=== PATIENT | female | born 1990 | race Hispanic/Latino ===

== ENCOUNTER 2020-09-11 08:24 | Emergency (ER) | payer SELFPAY ==
[~2020-09-11] VITALS: Ht 152.4 cm; Wt 74.8 kg
[2020-09-11] MEDS ORDERED: IBUPROFEN 600 MG TAB PO STA (08:31)
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
--- NOTE | 2020-09-11 08:56 | NUR ---
RIGHT GREAT TOE WRAPPED WITH XEROFORM, KERLEX AND COBAN. PATIENT PLACED ON POST OP SHOE
--- NOTE | 2020-09-11 09:05 | Diagnostic Imaging Report ---
Foot complete CPT code: 61269 Indication: Great toe injury ^Y ^toe pain ^[id number] ^0850 Technique: Portable A.P., oblique and lateral views of the right foot obtained. Comparison: None Findings: Calcaneus is intact and normal in morphology. The midfoot is intact. No evidence of displaced fracture or dislocation involving any of the digits. There are 2 radiopaque foreign bodies underneath the nail of the great toe. IMPRESSION: 2 radiopaque foreign bodies under the nail of the great toe. No evidence of displaced fracture. If there is persistent pain or clinical concern, suggest repeat imaging in 5-7 days to exclude occult fracture. Signed by: Dr. Anna Mcgee MD on 09/11/2020 9:02 AM
[2020-09-11] MEDS ORDERED: ULTRAM50 MG PO (09:12)
--- OUTSIDE RECORDS SUMMARY | 2020-09-11 09:17 | XMS REPORT | Continuity of Care Document ---
Author Author [facility] Organization [facility] Address [address] [place] [id number] Phone Unavailable Care Team Providers Care Ethnology Professor Name Role Phone Hardeep HALL Attjohn Unavailable Problems This patient has no known problems. Allergies, Adverse Reactions, Alerts This patient has no known allergies or adverse reactions. Medications This patient has no known medications. Procedures This patient has no known procedures. Results Test Description Test Time Test Comments Results Result Comments Source FOOT RIGHT COMPLETE 2020-09-11 08:57:00 [facility] 1990 Sex: F [facility] [address], [place] [address] Patient Name: ABAD LI MR #: [id number] : 1990 Age/Sex: 30/F Req #: [id number] [facility] Physician: Ordered by: DEX HALL DO Report #: [id number] Location: ER Room/Bed: Procedure: [id number] DX/FOOT RIGHT COMPLETE Exam Date: 09/11/20 Exam Time: 849 REPORT STATUS: Signed Foot complete CPT code: 80270 Indication: Great toe injury Y toe pain [id number] Technique: Portable A.P., oblique and lateral views of the right foot obtained. Comparison: None Findings: Calcaneus is intact and normal in morphology. The midfoot is intact. No evidence of displaced fracture or dislocation involving any of the digits. There are 2 radiopaque foreign bodies underneath the nail of the great toe. IMPRESSION: 2 radiopaque foreign bodies under the nail of the great toe. No evidence of displaced fracture. If there is persistent pain or clinical concern, suggest repeat imaging in 5-7 days to exclude occult fracture. Signed by: Dr. Gideon Mcgee MD on 09/11/2020 9:02 AM Dictated By: GIDEON MCGEE MD 1 Transcribed By: TILA on 09/11/20901 COPY TO: DEX HALL DO
== END 2020-09-11 09:59 | disposition home or self-care (01) ==
LOC: ER 09:14
DX: M79.674 Pain in right toe(s) (principal); W22.8XXA Striking against or struck by other objects, initial encounter; Y92.008 Other place in unspecified non-institutional (private) residence as the place of occurrence of the external cause; F17.210 Nicotine dependence, cigarettes, uncomplicated
CPT/HCPCS: 99283

== ENCOUNTER 2024-11-22 11:41 | Emergency (ER) | payer SELFPAY ==
[~2024-11-22] VITALS: Ht 152.4 cm; Wt 74.8 kg
[~2024-11-22 11:41] MED LIST: ULTRAM50 MG PO
[2024-11-22 12:16] VITALS: PULSE 85; RESP 18; TEMP 98.4; O2SAT 100
[2024-11-22] MEDS: ACETAMINOPHEN 325 MG TAB PO ONE (12:52)
== END 2024-11-22 14:00 | disposition home or self-care (01) ==
LOC: ER 12:18
DX: S06.0X0A Concussion without loss of consciousness, initial encounter (principal); S10.83XA Contusion of other specified part of neck, initial encounter; R51.9 Headache, unspecified; R11.2 Nausea with vomiting, unspecified; Y04.8XXA Assault by other bodily force, initial encounter; Y92.89 Other specified places as the place of occurrence of the external cause
CPT/HCPCS: 70450; 72125; 99283